=== PATIENT | male | born 1960 | race Caucasian/White ===

== ENCOUNTER 2016-09-11 17:08 | Inpatient (IN) | payer OTHER ==
[~2016-09-11] VITALS: Ht 185.4 cm; Wt 117.4 kg
[2016-09-11] MEDS ORDERED: SODIUM CHLORIDE 0.9% 1,000 ML IV ONE (17:44)
[2016-09-11] MEDS ORDERED: ACETAMINOPHEN 325 MG TABLET ONE (17:54)
[2016-09-11] MEDS ORDERED: LISINOPRIL 20 MG TABLET ONE (17:55)
[2016-09-11] MEDS ORDERED: LORazepam 2 MG/ML, 1ML ONE (17:56)
[2016-09-11] MEDS ORDERED: ASPIRIN 81 MG TABLET CHEW PO ONE (18:00)
[2016-09-11] MEDS ORDERED: LISINOPRIL 20 MG TABLET PO ONE (18:00)
[2016-09-11] MEDS ORDERED: LORazepam 2 MG/ML, 1ML IVPush ONE (18:00)
[2016-09-11] MEDS ORDERED: CEFTRIAXONE PMX 1GM/50ML 50 ML IVPB ONE (18:00)
[2016-09-11] MEDS ORDERED: ACETAMINOPHEN 325 MG TABLET PO ONE (18:00)
[2016-09-11] MEDS ORDERED: ASPIRIN 81 MG TABLET CHEW ONE (18:06)
[2016-09-11] MEDS ORDERED: CEFTRIAXONE PMX 1GM/50ML 50 ML ONE (18:23)
[2016-09-11 18:51] LABS: BLOOD UREA NITROGEN 10 mg/dL (7-18)
[2016-09-11 18:55] LABS: ASPARTATE AMINO TRANSFERASE 49 U/L (15-37)
[2016-09-11 18:56] LABS: IS PT STATUS REG ER OR PRE ER? YES
[2016-09-11] MEDS ORDERED: FUROSEMIDE 40 MG/4 ML IVPush ONE (19:30)
[2016-09-11] MEDS ORDERED: LABETALOL 5MG/ML, 20ML IVPush ONE (19:30)
[2016-09-11] MEDS ORDERED: NITROGLYCERIN OINT 2%, 1GM TP ONE ×2 (19:30→19:52)
[2016-09-11 19:35] LABS: ABG COLLECTION SITE LEFT RADIAL; COLLATERAL CIRCULATION TESTING NORMAL
[2016-09-11] MEDS ORDERED: FUROSEMIDE 20 MG/2 ML ONE (19:52)
[2016-09-11] MEDS ORDERED: LABETALOL 5MG/ML, 20ML ONE (19:52)
[2016-09-11] MEDS ORDERED: THIAMINE 100 MG in SODIUM CHLORIDE 0.9% 50 ML IV SCH (20:30)
[2016-09-11] MEDS: CEFTRIAXONE PMX 1GM/50ML 50 ML IV SCH (20:30)
[2016-09-11] MEDS ORDERED: morphine SULFATE 10 MG/ML, 1ML IVPush PRN (20:30)
[2016-09-11] MEDS ORDERED: NITROGLYCERIN 0.2 MG/HR PATCH TD SCH (20:30)
[2016-09-11] MEDS ORDERED: ENALAPRILAT 1.25 MG/ML, 2ML IV PRN (20:30)
[2016-09-11 22:24] VITALS: BP 166/122
[2016-09-11 22:38] VITALS: BP 145/97
[2016-09-11] MEDS: ATORVASTATIN 40 MG TABLET PO SCH (22:43)
[2016-09-11] MEDS: FUROSEMIDE 40 MG/4 ML IV SCH (22:43)
[2016-09-11] MEDS: NICOTINE 14MG/24 HR PATCH.TD24 TD SCH (22:43)
[2016-09-11 23:25] LABS: IS PT STATUS REG ER OR PRE ER? NO
[2016-09-12] MEDS: DOXYCYCLINE 100 MG in DEXTROSE 5% 250 ML IV SCH ×3 (00:01→21:48)
[2016-09-12 01:25] VITALS: BP 162/93
[2016-09-12 05:01] LABS: BLOOD UREA NITROGEN 12 mg/dL (7-18)
[2016-09-12 05:06] LABS: ASPARTATE AMINO TRANSFERASE 38 U/L (15-37)
[2016-09-12 05:08] LABS: IS PT STATUS REG ER OR PRE ER? NO
[2016-09-12] MEDS ORDERED: METOPROLOL TARTRATE 25 MG TABLET PO SCH (06:00)
[2016-09-12] MEDS ORDERED: POTASSIUM CHLORIDE 20 MEQ PACKET PO SCH (08:00)
[2016-09-12] MEDS ORDERED: REGADENOSON 0.4 MG/5 ML SYRINGE ONE (08:56)
[2016-09-12] MEDS: FUROSEMIDE 40 MG/4 ML IV SCH ×2 (08:59→20:52)
[2016-09-12] MEDS: LISINOPRIL 10 MG TABLET PO SCH ×2 (08:59→20:52)
[2016-09-12] MEDS: ASPIRIN 81 MG TABLET EC PO SCH (08:59)
[2016-09-12 09:13] VITALS: BP 162/120
[2016-09-12] MEDS: ENOXAPARIN 40 MG/0.4 ML SQ SCH (12:11)
[2016-09-12 14:41] VITALS: BP 152/92
[2016-09-12] MEDS: CARVEDILOL 6.25 MG TABLET PO SCH (18:09)
[2016-09-12 18:45] VITALS: BP 151/91
[2016-09-12] MEDS: NICOTINE 14MG/24 HR PATCH.TD24 TD SCH (20:51)
[2016-09-12] MEDS: CEFTRIAXONE PMX 1GM/50ML 50 ML IV SCH (20:51)
[2016-09-12] MEDS: ATORVASTATIN 40 MG TABLET PO SCH (20:52)
[2016-09-13 01:08] VITALS: BP 133/83
[2016-09-13 05:32] LABS: BLOOD UREA NITROGEN 14 mg/dL (7-18)
[2016-09-13] MEDS: CARVEDILOL 6.25 MG TABLET PO SCH (05:32)
[2016-09-13 05:35] LABS: TOTAL IRON BINDING CAPACITY 294 mcg/dL (250-450)
[2016-09-13 07:28] VITALS: BP 159/118
[2016-09-13] MEDS: ASPIRIN 81 MG TABLET EC PO SCH (08:10)
[2016-09-13] MEDS: LISINOPRIL 10 MG TABLET PO SCH (08:10)
[2016-09-13] MEDS: FUROSEMIDE 40 MG/4 ML IV SCH ×2 (08:10→20:09)
[2016-09-13] MEDS: SODIUM CHLORIDE FLUSH 10ML SYR IVF SCH ×2 (08:11→20:09)
[2016-09-13] MEDS: DOXYCYCLINE 100 MG in DEXTROSE 5% 250 ML IV SCH ×2 (09:56→21:27)
[2016-09-13 09:58] LABS: HEPATITIS C VIRUS ANTIBODY Nonreactive (Nonreactive)
[2016-09-13] MEDS: ENOXAPARIN 40 MG/0.4 ML SQ SCH (11:16)
[2016-09-13] MEDS: POTASSIUM CHLORIDE 20 MEQ TAB.ER.PRT PO SCH ×2 (12:30→17:51)
[2016-09-13 13:39] VITALS: BP 164/114
[2016-09-13] MEDS: CARVEDILOL 12.5 MG TABLET PO SCH (17:51)
[2016-09-13 18:45] VITALS: BP 143/91
[2016-09-13] MEDS: CEFTRIAXONE PMX 1GM/50ML 50 ML IV SCH (20:09)
[2016-09-13] MEDS: NICOTINE 14MG/24 HR PATCH.TD24 TD SCH (20:09)
[2016-09-13] MEDS: ATORVASTATIN 40 MG TABLET PO SCH (20:09)
[2016-09-13] MEDS: LISINOPRIL 20 MG TABLET PO SCH (20:09)
[2016-09-13] MEDS ORDERED: ALBUTEROL/IPRATROPIUM 2.5MG/0.5MG, 3 ML NPPB PRN (22:00)
[2016-09-14 01:53] VITALS: BP 148/94
[2016-09-14 05:42] VITALS: BP 155/95
[2016-09-14] MEDS: CARVEDILOL 12.5 MG TABLET PO SCH ×2 (05:44→17:12)
[2016-09-14 05:50] LABS: BLOOD UREA NITROGEN 17 mg/dL (7-18)
[2016-09-14 06:38] VITALS: BP 139/89
[2016-09-14] MEDS: POTASSIUM CHLORIDE 20 MEQ TAB.ER.PRT PO SCH ×2 (09:23→17:11)
[2016-09-14] MEDS: ASPIRIN 81 MG TABLET EC PO SCH (09:25)
[2016-09-14] MEDS: LISINOPRIL 20 MG TABLET PO SCH (09:25)
[2016-09-14] MEDS: FUROSEMIDE 40 MG/4 ML IV SCH ×2 (09:26→20:13)
[2016-09-14] MEDS: ENOXAPARIN 40 MG/0.4 ML SQ SCH (09:26)
[2016-09-14] MEDS: SODIUM CHLORIDE FLUSH 10ML SYR IVF SCH ×2 (09:29→20:15)
[2016-09-14] MEDS: DOXYCYCLINE 100 MG in DEXTROSE 5% 250 ML IV SCH ×2 (09:42→21:09)
[2016-09-14 12:48] VITALS: BP 147/101
[2016-09-14] MEDS: SPIRONOLACTONE 25 MG TABLET PO SCH (13:11)
[2016-09-14 18:42] VITALS: BP 144/92
[2016-09-14] MEDS: ATORVASTATIN 40 MG TABLET PO SCH (20:14)
[2016-09-14] MEDS: NICOTINE 14MG/24 HR PATCH.TD24 TD SCH (20:14)
[2016-09-14] MEDS: CEFTRIAXONE PMX 1GM/50ML 50 ML IV SCH (20:15)
[2016-09-15 00:47] VITALS: BP 120/74
[2016-09-15 05:04] LABS: ASPARTATE AMINO TRANSFERASE 36 U/L (15-37); BLOOD UREA NITROGEN 17 mg/dL (7-18)
[2016-09-15] MEDS: CARVEDILOL 12.5 MG TABLET PO SCH ×2 (05:57→17:13)
[2016-09-15] MEDS: DOXYCYCLINE 100 MG in DEXTROSE 5% 250 ML IV SCH ×2 (08:49→22:21)
[2016-09-15 08:50] VITALS: BP 145/95
[2016-09-15] MEDS: FUROSEMIDE 40 MG/4 ML IV SCH (08:55)
[2016-09-15] MEDS: POTASSIUM CHLORIDE 20 MEQ TAB.ER.PRT PO SCH (08:57)
[2016-09-15] MEDS: LISINOPRIL 20 MG TABLET PO SCH (08:58)
[2016-09-15] MEDS: SPIRONOLACTONE 25 MG TABLET PO SCH (08:58)
[2016-09-15] MEDS: ASPIRIN 81 MG TABLET EC PO SCH (08:58)
[2016-09-15] MEDS: ENOXAPARIN 40 MG/0.4 ML SQ SCH (08:59)
[2016-09-15 14:31] VITALS: BP 144/100
[2016-09-15] MEDS: SODIUM CHLORIDE FLUSH 10ML SYR IVF SCH ×2 (17:13→20:22)
[2016-09-15 20:16] VITALS: BP 158/100
[2016-09-15] MEDS: CEFTRIAXONE PMX 1GM/50ML 50 ML IV SCH (20:22)
[2016-09-15] MEDS: ATORVASTATIN 40 MG TABLET PO SCH (20:22)
[2016-09-15] MEDS: NICOTINE 14MG/24 HR PATCH.TD24 TD SCH (20:22)
[2016-09-16 01:07] VITALS: BP 147/94
[2016-09-16 05:11] VITALS: BP 141/99
[2016-09-16] MEDS: CARVEDILOL 12.5 MG TABLET PO SCH (05:12)
[2016-09-16 05:49] LABS: BLOOD UREA NITROGEN 18 mg/dL (7-18)
[2016-09-16 07:45] VITALS: BP 137/96
[2016-09-16] MEDS: LISINOPRIL 20 MG TABLET PO SCH (08:57)
[2016-09-16] MEDS: SPIRONOLACTONE 25 MG TABLET PO SCH (08:57)
[2016-09-16] MEDS: DOXYCYCLINE 100 MG in DEXTROSE 5% 250 ML IV SCH (08:57)
[2016-09-16] MEDS: ASPIRIN 81 MG TABLET EC PO SCH (08:57)
[2016-09-16] MEDS: ENOXAPARIN 40 MG/0.4 ML SQ SCH (08:57)
[2016-09-16] MEDS: SODIUM CHLORIDE FLUSH 10ML SYR IVF SCH (08:59)
[2016-09-16] MEDS ORDERED: FUROSEMIDE 40 MG TABLET PO SCH (09:00)
[2016-09-16] MEDS ORDERED: NICO1PAT4 TD (11:37)
[2016-09-16] MEDS ORDERED: CARV12.543 PO (11:37)
[2016-09-16] MEDS ORDERED: IPRA3AMP NPPB (11:37)
[2016-09-16] MEDS ORDERED: ATOR40TA78 PO (11:37)
[2016-09-16] MEDS ORDERED: FURO40TA6 PO (11:37)
[2016-09-16] MEDS ORDERED: ASPI-621 PO (11:37)
[2016-09-16] MEDS ORDERED: SPIR25TA PO (11:37)
[2016-09-16] MEDS ORDERED: LISI-170 PO (11:37)
[2016-09-16] MEDS ORDERED: PRED20TA PO ×2 (11:54→12:05)
[2016-09-16] MEDS ORDERED: CEFD300C37 PO (11:54)
[2016-09-16] MEDS ORDERED: DOXY100T PO (11:54)
== END 2016-09-16 14:38 | disposition home or self-care (01) | DRG 291 ==
LOC: ED 19:29 → EDIP 19:30 → 5SO 21:02 → DCLOUNGE 09-16 13:10
PROVIDERS: ADMIT Internal Medicine
DX: I11.0 Hypertensive heart disease with heart failure (principal); J96.01 Acute respiratory failure with hypoxia; J96.02 Acute respiratory failure with hypercapnia; J44.1 Chronic obstructive pulmonary disease with (acute) exacerbation; I50.43 Acute on chronic combined systolic (congestive) and diastolic (congestive) heart failure; D75.1 Secondary polycythemia; E66.01 Morbid (severe) obesity due to excess calories; E78.5 Hyperlipidemia, unspecified; I16.0 Hypertensive urgency; I25.5 Ischemic cardiomyopathy; D75.89 Other specified diseases of blood and blood-forming organs; F10.10 Alcohol abuse, uncomplicated; I25.10 Atherosclerotic heart disease of native coronary artery without angina pectoris; D69.6 Thrombocytopenia, unspecified; F17.210 Nicotine dependence, cigarettes, uncomplicated; I25.2 Old myocardial infarction; Z79.899 Other long term (current) drug therapy; Z82.3 Family history of stroke; Z82.49 Family history of ischemic heart disease and other diseases of the circulatory system; Z83.3 Family history of diabetes mellitus; Z88.0 Allergy status to penicillin; Z68.34 Body mass index [BMI] 34.0-34.9, adult
CPT/HCPCS: 36415; 36600; 71010; 71020; 76700; 78452; 80048; 80053; 80061; 80074; 82607; 82668; 82728; 82746; 82803; 83036; 83540; 83550; 83605; 83880; 84132; 84443; 84484; 85025; 85610; 87040; 93005; 93017; 93306; 94640; 96365; 96375; J0696; J1650; J1940; J2785; J3411; J7060; J7620; A9502; C9898; J2060; J7030; J7512

== ENCOUNTER → 2017-11-24 | Outpatient (CLI) | payer OTHER ==
[~2017-11-24] MED LIST: ASPI-621 PO; ATOR40TA78 PO; CARV12.543 PO; CEFD300C37 PO; DOXY100T PO; FURO40TA6 PO; IPRA3AMP NPPB; LISI-170 PO; NICO-486 TD; PRED20TA PO; SPIR25TA PO
== END | disposition home or self-care (01) ==
LOC: CVU 10:05
PROVIDERS: ATTEND Internal Medicine Cardiovascular Disease
DX: I11.9 Hypertensive heart disease without heart failure (principal); I34.8 Other nonrheumatic mitral valve disorders; I42.9 Cardiomyopathy, unspecified; E78.5 Hyperlipidemia, unspecified; Z87.891 Personal history of nicotine dependence
CPT/HCPCS: 93306

== ENCOUNTER 2019-07-08 16:32 | Emergency (ER) | payer OTHER ==
[~2019-07-08] VITALS: Ht 177.8 cm; Wt 116.9 kg
[~2019-07-08 16:32] MED LIST changes: -ASPI-621 PO; +ASPI81TA45 PO; -IPRA3AMP NPPB; +IPRA3AMP30 NPPB
--- NOTE | 2019-07-08 17:33 | NUR ---
Note undone in EDM - 07/08/19 at 1738 by KRISTI [facility] PT STATES ~30LB WEIGHT GAIN, BILAT LOWER EXTREMITY SWELLING, ABD DISTENTION, AND DECREASED ACTIVITY TOLERANCE X THREE WEEKS, WORSENING X TWO DAYS. HX OF CHF, ON CARVEDILOL AND LISINOPRIL DAILY. NO DIURETIC. LAST ECHO TWO YEARS AGO, "THEY SAID EVERY THING WAS FINE". DENIES ORTHOPNEA/CP/SOB/PRODUCTIVE COUGH. BLE +2 PITTING EDEMA, ABD DISTENDED BUT NON-TENDER. PT SPEAKING IN FULL SENTENCES WO DIFFICULTY. SPO2 >90% ON RA. BP/SPO2/ECG MONITORING IN PLACE. NSR ON MONITOR. PIV AND LAB DRAW ATTEMPT X 3 BY RN. UNSUCCESSFUL. ADDITIONAL ASSISTANCE REQUESTED.
--- NOTE | 2019-07-08 17:38 | NUR ---
PT SITTING UP IN [facility], NAD NOTED. PT STATES ~30LB WEIGHT GAIN, BILAT LOWER EXTREMITY SWELLING, ABD DISTENTION, AND DECREASED ACTIVITY TOLERANCE X THREE WEEKS, WORSENING X TWO DAYS. HX OF CHF, ON CARVEDILOL AND LISINOPRIL DAILY. NO DIURETIC. LAST ECHO TWO YEARS AGO, "THEY SAID EVERY THING WAS FINE". DENIES ORTHOPNEA/CP/SOB/PRODUCTIVE COUGH. BLE +2 PITTING EDEMA, ABD DISTENDED BUT NON-TENDER. PT SPEAKING IN FULL SENTENCES WO DIFFICULTY. SPO2 >90% ON RA. BP/SPO2/ECG MONITORING IN PLACE. NSR ON MONITOR. PIV AND LAB DRAW ATTEMPT X 3 BY RN. UNSUCCESSFUL. ADDITIONAL ASSISTANCE REQUESTED.
[2019-07-08 18:28] LABS: BASOPHILS # (AUTO) 0.02 x10^3/uL (0-0.1); BASOPHILS % (AUTO) 1 % (0-1); EOSINOPHILS # (AUTO) 0.11 x10^3/uL (0-0.4); EOSINOPHILS % (AUTO) 2 % (1-7); LYMPHOCYTES # (AUTO) 0.87 x10^3/uL (1-3.4); LYMPHOCYTES % (AUTO) 18 % (22-44); MD NO; MEAN CORPUSCULAR HEMOGLOBIN 35.6 pg (27.5-34.5); MEAN CORPUSCULAR HGB CONC 33.7 g/dL (33.2-36.2); MEAN CORPUSCULAR VOLUME 105.7 fL (81-97); MEAN PLATELET VOLUME 7.5 fL (7.4-10.4); MONOCYTES # (AUTO) 0.41 x10^3/uL (0.2-0.8); MONOCYTES % (AUTO) 8 % (2-9); NEUTROPHILS # (AUTO) 3.43 x10^3/uL (1.8-6.8); NEUTROPHILS % (AUTO) 71 % (42-75); PLATELET COUNT 168 x10^3/uL (130-400); RED CELL DISTRIBUTION WIDTH 12.8 % (9.4-14.8)
[2019-07-08 18:35] LABS: ALANINE AMINOTRANSFERASE 37 U/L (12-78); ALBUMIN 2.3 g/dL (3.4-5.0); ANION GAP 5 mmol/L (5-15); CALCIUM 8.2 mg/dL (8.5-10.1); CHLORIDE 101 mmol/L (98-107); CREATININE 0.97 mg/dL (0.7-1.3)
[2019-07-08 18:39] LABS: ALKALINE PHOSPHATASE 131 U/L (45-117); BILIRUBIN,TOTAL 2.3 mg/dL (0.2-1.0); TOTAL PROTEIN 7.2 g/dL (6.4-8.2); TROPONIN I < 0.015 ng/mL (0.000-0.045)
[2019-07-08 18:40] LABS: INTERNATIONAL NORMALIZED RATIO 1.43 (0.93-1.1); PROTHROMBIN TIME 15.2 Seconds (9.6-11.5)
--- NOTE | 2019-07-08 19:11 | NUR ---
PT RETURNED FROM US. NAD NOTED. DENIES PAIN/NEED FOR PAIN MEDICATIONS. URINAL PROVIDED AND PT AWARE OF NEED FOR UA.
[2019-07-08] MEDS ORDERED: FUROSEMIDE 40 MG/4 ML ONE (19:21)
[2019-07-08] MEDS ORDERED: FUROSEMIDE 40 MG/4 ML IV ONE (19:30)
[2019-07-08 20:23] VITALS: BP 130/60
--- NOTE | 2019-07-08 20:23 | NUR ---
APPROX 200ML URINE OUT. UA COLLECTED AND SENT TO LAB.
--- NOTE | 2019-07-08 20:35 | NUR ---
POC IS DC. IV DC'D. PT OFF MONITORING AND UP TO DRESS SELF. AWAITING DC INSTRUCTIONS.
[2019-07-08 20:40] LABS: MICROSCOPIC NOT IND
[2019-07-08 20:43] LABS: CULTURE INDICATED? NO
--- NOTE | 2019-07-08 21:14 | NUR ---
DC EDUCATION PROVIDED, PT DEMONSTRATES UNDERSTANDING. PT AMBULATORY TO DC DESK WO COMPLAINTS OF SOB OR NEEDING PAUSE.
== END 2019-07-08 21:17 | disposition home or self-care (01) ==
LOC: ED 19:00
DX: K74.60 Unspecified cirrhosis of liver (principal); R60.0 Localized edema; E88.09 Other disorders of plasma-protein metabolism, not elsewhere classified; I10 Essential (primary) hypertension
CPT/HCPCS: 36415; 71045; 76700; 80053; 81003; 83735; 83880; 84484; 85025; 85610; 93005; 96374; 99285; J1940

== ENCOUNTER → 2019-09-16 | Outpatient (CLI) | payer OTHER | END | disposition home or self-care (01) | LOC: CVU 07:56 | PROVIDERS: ATTEND Internal Medicine Gastroenterology | DX: I34.8 Other nonrheumatic mitral valve disorders (principal); R18.8 Other ascites; K70.30 Alcoholic cirrhosis of liver without ascites; R16.1 Splenomegaly, not elsewhere classified; I10 Essential (primary) hypertension; E78.5 Hyperlipidemia, unspecified | CPT/HCPCS: 76700; 93306; 93356 ==

== ENCOUNTER 2020-01-19 10:10 | Day surgery (SDC) | payer OTHER ==
[2020-01-16 16:25] LABS: BASOPHILS # (AUTO) 0.04 x10^3/uL (0-0.1); BASOPHILS % (AUTO) 1 % (0-1); EOSINOPHILS # (AUTO) 0.12 x10^3/uL (0-0.4); EOSINOPHILS % (AUTO) 3 % (1-7); LYMPHOCYTES # (AUTO) 0.73 x10^3/uL (1-3.4); LYMPHOCYTES % (AUTO) 15 % (22-44); MD NO; MEAN CORPUSCULAR HEMOGLOBIN 35.4 pg (27.5-34.5); MEAN CORPUSCULAR HGB CONC 33.9 g/dL (33.2-36.2); MEAN PLATELET VOLUME 6.6 fL (7.4-10.4); MONOCYTES # (AUTO) 0.47 x10^3/uL (0.2-0.8); MONOCYTES % (AUTO) 10 % (2-9); NEUTROPHILS # (AUTO) 3.47 x10^3/uL (1.8-6.8); NEUTROPHILS % (AUTO) 72 % (42-75); PLATELET COUNT 161 x10^3/uL (130-400); RED BLOOD COUNT 3.82 x10^6/uL (4.38-5.82); RED CELL DISTRIBUTION WIDTH 16.1 % (9.4-14.8)
[2020-01-16 16:39] LABS: CALCIUM 8.8 mg/dL (8.5-10.1)
[2020-01-16 16:40] LABS: INTERNATIONAL NORMALIZED RATIO 1.37 (0.93-1.1); PROTHROMBIN TIME 14.2 Seconds (9.6-11.5)
[2020-01-16 16:43] LABS: ALANINE AMINOTRANSFERASE 27 U/L (12-78); ALBUMIN 2.7 g/dL (3.4-5.0); ALKALINE PHOSPHATASE 166 U/L (45-117); CREATININE 0.93 mg/dL (0.7-1.3); TOTAL PROTEIN 7.5 g/dL (6.4-8.2)
[2020-01-16 17:00] LABS: ANION GAP 4 mmol/L (5-15); CHLORIDE 103 mmol/L (98-107)
[~2020-01-19] VITALS: Ht 185.4 cm; Wt 112.0 kg
[~2020-01-19 10:10] MED LIST changes: +ATOR10TA9 PO; +CARV12.52 PO; +FURO-92 PO; +SPIR100T4 PO
[2020-01-19] MEDS ORDERED: CHLORHEXIDINE 15 ML UDC MM STA (10:20)
[2020-01-19] MEDS ORDERED: LACTATED RINGERS 1,000 ML IV SCH (10:21)
[2020-01-19 10:39] VITALS: BP 155/90
[2020-01-19] MEDS ORDERED: PROPOFOL 10 MG/ML, 20ML ONE (12:35)
[2020-01-19] MEDS ORDERED: PROPOFOL 10 MG/ML, 50ML ONE (12:35)
[2020-01-19] MEDS ORDERED: DIPHENHYDRAMINE 50 MG/ML, 1ML IVPush PRN (13:00)
[2020-01-19] MEDS ORDERED: ONDANSETRON 2MG/ML, 2ML IVPush PRN (13:00)
[2020-01-19] MEDS ORDERED: EPHEDRINE 50 MG/ML, 1ML IVPush PRN (13:00)
[2020-01-19] MEDS ORDERED: FENTANYL PF 100 MCG/2ML IV PRN (13:00)
[2020-01-19] MEDS ORDERED: LABETALOL 5MG/ML, 20ML IV PRN (13:00)
== END 2020-01-19 15:45 | disposition home or self-care (01) ==
LOC: OUT 10:10
PROVIDERS: ATTEND Internal Medicine Gastroenterology
DX: Z12.11 Encounter for screening for malignant neoplasm of colon (principal); Z20.828 Contact with and (suspected) exposure to other viral communicable diseases; D12.2 Benign neoplasm of ascending colon; D12.3 Benign neoplasm of transverse colon; D12.4 Benign neoplasm of descending colon; K62.1 Rectal polyp; K57.30 Diverticulosis of large intestine without perforation or abscess without bleeding; K64.8 Other hemorrhoids; K70.31 Alcoholic cirrhosis of liver with ascites; I85.10 Secondary esophageal varices without bleeding; K76.6 Portal hypertension; K29.50 Unspecified chronic gastritis without bleeding; K31.89 Other diseases of stomach and duodenum; L91.8 Other hypertrophic disorders of the skin; J44.9 Chronic obstructive pulmonary disease, unspecified; I11.0 Hypertensive heart disease with heart failure; I50.9 Heart failure, unspecified; Z88.0 Allergy status to penicillin
CPT/HCPCS: 36415; 43239; 45380; 45385; 71046; 80053; 85025; 85610; 85730; 87635; 88305; 88342; 93005; J2704; J7120